=== PATIENT | male | born 1970 | race Caucasian/White ===

== ENCOUNTER 2019-04-20 22:46 | Emergency (ER) | payer MEDICARE ==
[2019-04-20] MEDS ORDERED: LIDOCAINE 1%/EPINEPHRINE INJ 20 ML VIAL INJ ONE (23:07)
[2019-04-20 23:19] VITALS: BP 152/107
[2019-04-20] MEDS ORDERED: DIPH/PERTUSS(ACELL)/TETANUS VAC/PF 0.5 ML SYR (>=10YO) IM ONE (23:23)
[2019-04-20] MEDS ORDERED: CLINDAMYCIN HCL 150 MG CAPSULE PO ONE (23:24)
--- NOTE | 2019-04-20 23:31 | ER Document Report ---
ED Hand/Wrist Injury - General Chief Complaint: Hand Injury Stated Complaint: STAPLE IN KNUCKLE Time Seen by Provider: 04/20/19 23:03 Primary Care Provider: MOHAN BREWER MD [ACTIVE STAFF] - Follow up as needed Notes: CHIEF COMPLAINT: Staple in right hand HPI: 49-year-old male presenting to the emergency department complaining of a staple embedded in the right fifth finger knuckle tonight. Patient states that he was working near a boarded area that was held in place with syd and his hand struck the board and the staple went into the hand. He was unable to remove it at home. Patient was concerned about this because he has a history of MS and has frequent MRIs and cannot have metal in the body. Patient states his tetanus vaccination is not up-to-date. He reports pain at the MCP region with movement of the fifth finger of the right hand. Denies other injuries or complaints ROS: See HPI - all other systems were reviewed and are otherwise negative Constitutional: no fever Integumentary: no rash Allergy: no hives Musculoskeletal: + extremity pain or swelling Neurological: no numbness/tingling, no weakness MEDICATIONS: I agree with the patient medications as charted by the RN. ALLERGIES: I agree with the allergies as charted by the RN. PAST MEDICAL HISTORY/PAST SURGICAL HISTORY: Reviewed and agree as charted by RN. SOCIAL HISTORY: Reviewed and agree as charted by RN. FAMILY HISTORY: No significant familial comorbid conditions directly related to patient complaint EXAM: Reviewed vital signs as charted by RN. CONSTITUTIONAL: Alert and oriented and responds appropriately to questions. Well-appearing; well-nourished HEAD: Normocephalic; atraumatic EYES: Conjunctivae clear, sclerae non-icteric ENT: normal nose; no rhinorrhea; moist mucous membranes NECK: Supple without meningismus CARD: symmetric distal pulses RESP: Normal chest excursion without splinting or tachypnea ABD/GI: non-distended BACK: The back appears normal EXT: Normal ROM in all joints;; no cyanosis, no effusions, no edema. There is a metallic foreign body appearing to be a staple embedded in the skin over the dorsal fifth MCP region. Patient has pain with full extension of the finger in this region. Patient does not have any redness around the wound area. Sensation intact distal to the foreign body SKIN: Normal color for age and race; warm; dry; good turgor NEURO: Moves all extremities equally; Motor and sensory function intact PSYCH: The patient's mood and manner are appropriate. Grooming and personal hygiene are appropriate. MDM: 49-year-old male with a staple embedded over the MCP region of the right hand. I will plan to numb the area to facilitate removal. Will obtain x-ray to evaluate for retained foreign body. Given the nature of the wound will place patient on a course of antibiotics. Patient did bring a staple identical to the one that is embedded for measurement after removal - Related Data Allergies/Adverse Reactions: Penicillins Allergy (Verified 04/20/19 23:20) Past Medical History - Social History Smoking Status: Current Every Day Smoker Frequency of alcohol use: Occasional Family History: Reviewed & Not Pertinent Patient has suicidal ideation: No Patient has homicidal ideation: No Physical Exam - Vital signs Vitals: Temp Pulse Resp BP Pulse Ox 97.6 F 72 18 152/107 H 98 04/20/19 23:10 04/20/19 23:10 04/20/19 23:10 04/20/19 23:10 04/20/19 23:10 Course - Re-evaluation Re-evalutation: 04/20/19 23:29 I was able to remove the staple intact, it measures equally with the staple the patient brought in. We will obtain x-ray to ensure no retained foreign body. 04/20/19 23:30 The skin was cleansed with Shur-Clens. Sterile procedure observed. Injection of 1 cc lidocaine with epinephrine around the foreign body. The foreign body was gently removed and manipulated with a pair of hemostats with intact removal. No bleeding after removal. Patient able to fully range the fifth finger without discomfort after removal. Neurovascularly intact after removal. 04/20/19 23:37 There is no visible foreign body on my review of the patient's x-rays over the fifth finger MCP region. There does appear to be an opaque foreign body between the thumb and index finger but this is not in the area where the patient had the embedded staple. - Vital Signs Vital signs: Temp Pulse Resp BP Pulse Ox 97.6 F 72 18 152/107 H 98 04/20/19 23:10 04/20/19 23:10 04/20/19 23:10 04/20/19 23:10 04/20/19 23:10 Discharge - Discharge Clinical Impression: Foreign body in hand Qualifiers: Encounter type: initial encounter Laterality: right Qualified Code(s): S60.551A - Superficial foreign body of right hand, initial encounter Condition: Stable Disposition: HOME, SELF-CARE Additional Instructions: Keep the wound area is clean and dry as possible. Take the antibiotics as prescribed. Follow-up with orthopedics for wound check in 3 to 4 days, sooner if you develop redness or swelling around the wound area. Return if you have increasing swelling around the wound area or difficulty ranging the fifth finger on the right hand as discussed Prescriptions: Clindamycin HCl [Cleocin 150 mg Capsule] 150 mg PO QID 7 Days #28 capsule Referrals: MOHAN BREWER MD [ACTIVE STAFF] - Follow up as needed
--- NOTE | 2019-04-20 23:55 | RADIOLOGY REPORT (SQ) ---
EXAM DESCRIPTION: XR HAND 3 OR MORE VIEWS COMPLETED DATE/TME: 04/20/2019 23:23 CLINICAL HISTORY: post FB removal 5th MCP COMPARISON: None FINDINGS: Three x-ray views of the right elbow were submitted. There is no acute fracture or dislocation. Bone mineralization is within normal limits. There is a semilunar shaped 3.5 mm radiopaque foreign body within the soft tissues radial to the second metatarsal bone/volar side. Additional adjacent linear radiopaque opacity also noted. There are degenerative changes of the interphalangeal joint of the first digit/thumb. IMPRESSION: Two radiopaque foreign body material within the soft tissues radial to the second metacarpal bone.
== END 2019-04-21 00:15 | disposition home or self-care (01) ==
LOC: ER 22:46
DX: S60.551A Superficial foreign body of right hand, initial encounter (principal); G35 Multiple sclerosis; M79.644 Pain in right finger(s); M79.89 Other specified soft tissue disorders; W22.8XXA Striking against or struck by other objects, initial encounter; F17.200 Nicotine dependence, unspecified, uncomplicated
CPT/HCPCS: 99283; 90471; 73130; 90715; A9270; J3490